=== PATIENT | female | born 1980 | race Caucasian/White ===

== ENCOUNTER 2019-11-25 06:43 | Inpatient (IN) | payer MEDICARE, OTHER ==
[2019-11-25] MEDS ORDERED: RINGERS SOLUTION,LACTATED 1,000 ML IV PRN (07:14)
[2019-11-25] MEDS ORDERED: RINGERS SOLUTION,LACTATED 1,000 ML IV ONE (07:14)
[2019-11-25] MEDS ORDERED: OXYTOCIN/0.9 % SODIUM CHLORIDE 30 UNIT/500 ML RTUINJ IV PRN ×2 (07:30→16:20)
[2019-11-25 07:51] LABS: APPEARANCE,URINE SLIGHTLY-CLOUDY; BILIRUBIN,URINE NEGATIVE (NEGATIVE); COLOR,URINE YELLOW; GLUCOSE, URINE NEGATIVE (NEGATIVE); KETONES,URINE NEGATIVE (NEGATIVE); LEUKOCYTE ESTERASE,URINE TRACE (NEGATIVE); NITRITE,URINE NEGATIVE (NEGATIVE); PROTEIN,URINE NEGATIVE (NEGATIVE); UROBILINOGEN,URINE NEGATIVE mg/dL (<2.0)
[2019-11-25 07:52] LABS: ABSOLUTE EOSINOPHILS # (AUTO) 0.1 10^3/uL (0.0-0.6); ABSOLUTE LYMPHOCYTES (AUTO) 1.5 10^3/uL (0.5-4.7); ABSOLUTE MONOCYTES (AUTO) 0.6 10^3/uL (0.1-1.4); ABSOLUTE NEUT (AUTO) 4.5 10^3/uL (1.7-8.2); BASOPHILS % (AUTO) 0.4 % (0-2); EOSINOPHILS % (AUTO) 0.8 % (0-6); HEMATOCRIT 36.1 % (36.0-47.0); HEMOGLOBIN 12.4 g/dL (12.0-15.5); LYMPHOCYTES % (AUTO) 22.9 % (13-45); MEAN CORPUSCULAR HEMOGLOBIN 30.8 pg (27.0-33.4); MEAN CORPUSCULAR HGB CONC 34.3 g/dL (32.0-36.0); MEAN CORPUSCULAR VOLUME 90 fl (80-97); MONOCYTES % (AUTO) 8.7 % (3-13); PLATELET COUNT 180 10^3/uL (150-450); RED BLOOD COUNT 4.02 10^6/uL (3.72-5.28); SEGMENTED NEUTROPHILS % (AUTO) 67.2 % (42-78); TOTAL CELLS COUNTED % (AUTO) 100 %; WHITE BLOOD COUNT 6.7 10^3/uL (4.0-10.5)
[2019-11-25 08:11] LABS: URINE AMPHETAMINES SCREEN NEGATIVE; URINE BARBITURATES SCREEN NEGATIVE; URINE BENZODIAZEPINES SCREEN NEGATIVE; URINE COCAINE SCREEN NEGATIVE; URINE MARIJUANA (THC) SCREEN NEGATIVE; URINE METHADONE SCREEN NEGATIVE; URINE PHENCYCLIDINE SCREEN NEGATIVE
[2019-11-25] MEDS ORDERED: LIDOCAINE 1% INJ-PF (10 MG/ML) 30 ML SDV ONE (08:11)
[2019-11-25] MEDS ORDERED: OXYTOCIN/0.9 % SODIUM CHLORIDE 30 UNIT/500 ML RTUINJ ONE (08:11)
[2019-11-25] MEDS ORDERED: OXYTOCIN 10 UNIT/ML VIAL ONE (08:11)
[2019-11-25] MEDS ORDERED: MISOPROSTOL 0.2 MG TABLET ONE (08:11)
--- NOTE | 2019-11-25 10:39 | L&D Progress Notes ---
PROGRESS NOTES Datetime Report Generated by CPN: 11/25/2019 10:38 PROGRESS NOTE Vital Signs : Reviewed Comment: Doing well, no c/o, irreg uyc's, Cat 1 strip, discussed POC, will ROM when vtx lower LAST VAGINAL EXAM-NURSING Nursing Exam Dilitation: 2.0 Nursing Exam Effacement: Thk Nursing Exam Station: High FETUS A FHR Category: Category I SIGNATURE SIGNATURE: [id number] Assignment: Cathleen Hammer MD Signature: with User ID: [email or web address] : with User ID: [email or web address]
--- NOTE | 2019-11-25 11:26 | L&D Progress Notes ---
PROGRESS NOTES Datetime Report Generated by CPN: 11/25/2019 11:26 PROGRESS NOTE Vital Signs : Reviewed Comment: VE= 2/80/vtx/-1, AROM. light mec, Cat 1 strip LAST VAGINAL EXAM-NURSING Nursing Exam Dilitation: 2.0 Nursing Exam Effacement: Thk Nursing Exam Station: High FETUS A FHR Category: Category I SIGNATURE SIGNATURE: [id number] Assignment: Cathleen Hammer MD Signature: with User ID: Rylan : with User ID: Rylan
--- NOTE | 2019-11-25 12:08 | Admission Physical ---
Datetime Report Generated by CPN: 11/25/2019 12:08 CURRENT ADMISSION Hx Assessment: The History has been Reviewed and is Current Chief Complaint: Scheduled Induction of Labor Indication for Induction: Postterm Admit Impression : Postterm, Intrauterine ; No Active Labor; Intact Membranes Admit Plan: Admit to Unit; Initiate Labor Induction Protocol ALLERGIES Medication Allergies: No Medication Allergies: No Known Allergies (11/26/2017) Latex: No Latex Allergies OBSTETRICAL HISTORY EDC: 11/22/2019 00:00 : 5 Para: 4 Term: 4 : 0 SAB: 0 IAB: 0 Ectopic: 0 Livin Cesareans: 0 VBACs: 0 Multiple Births: 0 Gestational Diabetes: No Rh Sensitization: No Incompetent Cervix: No TONI: No Infertility: No ART Treatment: No Uterine Anomaly: No IUGR: No Hx Previous C/S: No Macrosomia: No Hx Loss/Stillborn: No PIH: No Hx : No Placenta Previa/Abruption: No Depression/PP Depression: No PTL/PROM: No Post Hemorrhage: No Current Procedures: Ultrasound; NST SEE RECORDS Alcohol: No Marijuana : No Cocaine: No Other Illicit Drugs: No Cigarettes: Never Smoker. 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 Surgery: No Heart Disease: No Hosp/Surgery: No Autoimmune Disorder: No Anesthetic Complications: No Kidney Disease: No Abnormal Pap Smear: No Neuro/Epilepsy: No Psychiatric Disorders: No Other Medical Diseases: No Hepatitis/Liver Disease: No Significant Family History: No Varicosities/Phlebitis: No Trauma/Violence : No Thyroid Dysfunction: No INFECTIOUS HISTORY Gonorrhea: No Genital Herpes: No Chlamydia: No Tuberculosis: No Syphilis: No Hepatitis: No HIV/AIDS Exposure: No Rash or Viral Illness: No HPV: No PHYSICAL EXAM General: Normal HEENT: Normal Neurologic: Normal Thyroid: Normal Heart: Normal Lungs: Normal Breast: Normal Back: Normal Abdomen: Normal Genitourinary Exam: Normal Extremities: Normal DTRs: Normal Pelvic Type: Adequate Physical Exam Comments: Hx HSV zoster AMA GBS neg FETUS A EGA: 40.3 Monitoring: External US Variability: Moderate 6-25bpm Decelerations: None FHR Category: Category I Admit Comment: Admitted to LD for IOL for post dates, , usually has fast deliveries after 4 cm Plans epidural, hsb at , POC discussed PLANS FOR LABOR AND DELIVERY Labor and Delivery: None Pain Management: Epidural Feeding Preference: Breast INFORMED CONSENT Assignment: Cathleen Hammer MD Signature: with User ID: [email or web address] : with User ID: [email or web address]
[2019-11-25] MEDS ORDERED: EPHEDRINE SULFATE INJ 50 MG/1 ML AMPULE ONE (13:23)
[2019-11-25] MEDS ORDERED: FENTANYL/BUPIVACAINE/NS/PF 300 MCG/150 ML RTUINJ EPI ONE (13:24)
[2019-11-25] MEDS ORDERED: ROPIVACAINE HCL 0.2% INJ/PF (2 MG/ML) 20 ML SDV ONE (13:24)
[2019-11-25] MEDS ORDERED: PROMETHAZINE HCL 25 MG TABLET PO PRN (16:20)
[2019-11-25] MEDS ORDERED: MISOPROSTOL 0.2 MG TABLET PR PRN (16:20)
[2019-11-25] MEDS ORDERED: DIBUCAINE 1% OINTMENT 28 GM TP PRN (16:20)
[2019-11-25] MEDS ORDERED: ACETAMINOPHEN WITH CODEINE #3 TABLET PO PRN ×2 (16:20)
[2019-11-25] MEDS ORDERED: BENZOCAINE/MENTHOL AEROSOL SPRAY 56 ML TOP PRN (16:20)
[2019-11-25] MEDS ORDERED: PROMETHAZINE HCL INJ 25 MG/1 ML VIAL IV PRN (16:20)
[2019-11-25] MEDS ORDERED: MAGNESIUM HYDROXIDE SUSP 30 ML UDCUP PO PRN (16:20)
[2019-11-25] MEDS ORDERED: MEASLES,MUMPS&RUBELLA VACC/PF 0.5 ML VIAL SUBCUT PRN (16:20)
[2019-11-25] MEDS ORDERED: ACETAMINOPHEN 650 MG SUPP.RECT PR PRN (16:20)
[2019-11-25] MEDS ORDERED: PROMETHAZINE HCL 25 MG SUPP.RECT PR PRN (16:20)
[2019-11-25] MEDS ORDERED: PSEUDOEPHEDRINE HCL 30 MG TABLET PO PRN (16:20)
[2019-11-25] MEDS ORDERED: GLYCERIN/WITCH HAZEL LEAF 1 EACH MED..WIPE TP PRN (16:20)
[2019-11-25] MEDS ORDERED: DIPHENHYDRAMINE HCL 25 MG CAPSULE PO PRN (16:20)
[2019-11-25] MEDS ORDERED: DIPH/PERTUSS(ACELL)/TETANUS VAC/PF 0.5 ML SYR (>=10YO) IM PRN (16:20)
[2019-11-25] MEDS ORDERED: NA PHOS,M-B/NA PHOS,DI-BA (ADULT) 133 ML ENEMA PR PRN (16:20)
--- NOTE | 2019-11-25 17:59 | Warning Signs in Babies ---
VOD Warning Signs Datetime Report Generated by [facility]: 11/25/2019 17:58 VOD#608 -Warning Signs in Babies: Needs to be viewed. (11/25/2019 07:20:Tara Giraldo RN)
--- NOTE | 2019-11-25 17:59 | Birth Certificate Data ---
Cert Data Datetime Report Generated by CPN: 11/25/2019 17:58 CERTIFICATE DATA 47a. Care: Yes (11/25/2019 07:20:Tara Giraldo RN) 47b. Date of First Visit: 04/06/2019 00:00 (11/25/2019 07:20:Tara Giraldo RN) 47c. Date of Last Visit: 11/22/2019 00:00 (11/25/2019 07:20:Tara Giraldo RN) 47d. Number of Visits: 13 (11/25/2019 07:20:Tara Giraldo RN) 48a. Number of Prev Live Births: 4 (11/25/2019 07:20:Tara Giraldo RN) 48b. Now Livin (11/25/2019 07:20:Tara Giraldo RN) 48c. Live Births Now : 0 (11/25/2019 07:20:QS system process) 48d. Date of Last Live : 11/26/2017 00:00 (11/25/2019 07:20:Tara Giraldo RN) 48e. Losses: 0 (11/25/2019 07:20:Tara Giraldo RN) RISK FACTORS IN THIS 49a. Diabetes: No (11/25/2019 07:20:Tara Giraldo RN) 49b. Hypertension: No (11/25/2019 07:20:Tara Giraldo RN) 49c. Previous Births: 0 (11/25/2019 07:20:Tara Giraldo RN) 49d. Stillborns: No (11/25/2019 07:20:Tara Giraldo RN) 49d. IUGR: No (11/25/2019 07:20:Tara Giraldo RN) 49e. Infertility Treatment: No (11/25/2019 07:20:Tara Giraldo RN) 49f. Previous Cesareans: 0 (11/25/2019 07:20:Tara Giraldo RN) Mother's Height 50b. Height Inches: 68 (11/25/2019 17:03:QS system process) Mother's Weight 51a. Pre- Weight (lbs): 186 (11/25/2019 07:20:Tara Giraldo RN) 51b. Weight at Delivery (lbs): 218 (11/25/2019 17:03:QS system process) Infections Present/Treated 53a. Gonorrhea: No (11/25/2019 07:20:Tara Giraldo RN) Results this Hospital Visit : Negative (11/25/2019 07:20:Tara Giraldo RN) 53b. Syphilis: No (11/25/2019 07:20:Tara Giraldo RN) Results this Hospital Visit: NONREACTIVE (11/25/2019 07:34:QS system process) 53c. Chlamydia: No (11/25/2019 07:20:Tara Giraldo RN) Results this Hospital Visit: Negative (11/25/2019 07:20:Tara Giraldo RN) 53d. Hepatitis B: No (11/25/2019 07:20:Tara Giraldo RN) Results this Hospital Visit: Negative (11/25/2019 07:20:Tara Giraldo RN) 53e. Hepatitis C: Negative (11/25/2019 07:20:Tara Giraldo RN) 53h. Mother Tested for HBsAG: Yes (11/25/2019 07:20:Tara Giraldo RN) 53i. Date Tested: 04/06/2019 00:00 (11/25/2019 07:20:Tara Giraldo RN) 53j. Test Result: Negative (11/25/2019 07:20:Tara Giraldo RN) Obstetric Procedures 54a, b, c. Obstetric Procedures: Ultrasound; NST (11/25/2019 07:20:Tara Giraldo RN) Cigarette Smoking 55a. 3 Months Before Preg - Ci (11/25/2019 07:20:Tara Giraldo RN) 55a. Packs: 0 (11/25/2019 07:20:Tara Giraldo RN) 55b. 1st Trimester of Preg- Ci (11/25/2019 07:20:Tara Giraldo RN) 55b. Packs: 0 (11/25/2019 07:20:Tara Giraldo RN) 55c. 2nd Trimester of Preg- Ci (11/25/2019 07:20:Tara Giraldo RN) 55c. Packs: 0 (11/25/2019 07:20:Tara Giraldo RN) 55d. 3rd Trimester of Preg- Ci (11/25/2019 07:20:Tara Giraldo RN) 55d. Packs: 0 (11/25/2019 07:20:Tara Giraldo RN) Onset of Labor 56a. PROM >12 Hrs: 4.63 (11/25/2019 07:20:QS system process) 56b. Precipitous Labor <3 Hrs: 3 (11/25/2019 07:20:QS system process) 56c. Prolonged Labor > 20 Hrs: 3 (11/25/2019 07:20:QS system process) 57a. Induction of Labor: Induction (11/25/2019 07:20:Matilde Seals RN) 57a. Induction of Labor: Cytotec @ 1mg rectally by KAILEY Dietz (11/25/2019 16:03:Tara Giraldo RN) 57c. Non-Vertex Presentation A: Vertex (11/25/2019 07:20:Matilde Seals RN) 57d. Steroids - Lung Mat: None (11/25/2019 07:20:Matilde Seals RN) 57d. Steroids - Lung Mat: Not Applicable (11/25/2019 07:20:Matilde Seals RN) 57f. Mat [place] or Temp >100.4: 97.9 (11/25/2019 07:20:Matilde Seals RN) 57g. Moderate/Heavy Meconium: Light Meconium (11/25/2019 11:19:Matilde Seals RN) 57h. Intolerance of Labor: N/A (11/25/2019 07:20:Tara Giraldo RN) : N/A (11/25/2019 07:20:Tara Giraldo RN) 57i. Epidural/Spinal Anesthesia: Epidural (11/25/2019 07:20:Matilde Seals RN) Method of Delivery 58a. Forceps - Unsuccessful A: N/A (11/25/2019 07:20:Matilde Seals RN) 58b. Vacuum - Unsuccessful A: N/A (11/25/2019 07:20:Matilde Seals RN) 58c. Presentation at 58c. Presentation at - A : Vertex (11/25/2019 07:20:Matilde Seals RN) 58c. Presentation at - A : N/A (11/25/2019 07:20:Matilde Seals RN) 58c. Presentation at - A : Cephalic (11/25/2019 15:04:Tara Giraldo RN) Final Route and Method of Del 58d. Baby A Route/Delivery: Vaginal (11/25/2019 15:57:Tara Giraldo RN) 58e. Trial of Labor Attempted: No (11/25/2019 07:20:Matilde Seals RN) 58e. Trial of Labor Attempted A: N/A (11/25/2019 07:20:Matilde Marhefka, RN) 58e. Trial of Labor Attempted B: N/A (11/25/2019 07:20:Matildeida Seals RN) Maternal Morbidity 59b. 3rd or 4th Degree Lacs: Perineal (11/25/2019 07:20:Tara Francieelvar, RN) Birthweight Baby A: 3200 (11/25/2019 07:20:Betty Rao RN) 60a. Pounds : 7 (11/25/2019 07:20:QS system process) 60b. Ounces: 1 (11/25/2019 07:20:QS system process) 61. GA at Delivery Baby A: 40.3 (11/25/2019 07:20:Matilde Seals RN) : Full Term- 39- 40.6 Weeks (11/25/2019 07:20:QS system process) 62a. 5 Minute Baby A: 10 (11/25/2019 07:20:QS system process)
--- NOTE | 2019-11-25 18:00 | Delivery Summary ---
Del Sum A-C Datetime Report Generated by CPN: 11/25/2019 18:00 DELIVERY PERSONNEL DELIVERY PERSONNEL: [id number] Delivery Doctor:: Mary Herrera CNM Labor and Delivery Nurse:: aTra Giraldo RNhelper chicken farm Nurse:: Matilde Seals RN Nursery Nurse:: Matilde Seals RN Canal Equipment Mechanic/TENTERING MACHINE FEEDER: Ailyn Posey CST [employer] Equipment Mechanic/TENTERING MACHINE FEEDER: [facility], BUS TRANSPORTATION MANAGER MATERNAL INFORMATION Delivery Anesthesia: Epidural Medications After Delivery: Pitocin 30 Units in 500ml NS/D5W; Cytotec 1000mcg Per Rectum/Vagina Delivery QBL: 100 Maternal Complications: None Provider Comments: Progressed quickly, viable male from OA to MADHURI, NC x 1, reduced after delivery, baby placed on mothers abd, cord clamped and cut after 2 minutes by FOB, spont delivery of grossly nl intact placenta, 3 VC, laceration sutured FFFM, massage, Pitocin and Cytotec 1000mcg via rectum Baby and mom remain in recovery in stable condition, FFFM LABOR SUMMARY EDC: 11/22/2019 00:00 No. Babies in Womb: 1 Attempted: No Labor Anesthesia: Epidural LABOR INFORMATION Reason for Induction: Post Dates; Other Reason for Induction- Other: Advanced Maternal Age Onset of Labor: 11/25/2019 12:19 Complete Dilatation: 11/25/2019 15:46 Cervical Ripening Agents: Cytotec @ 1mg rectally by KAILEY Dietz Oxytocin: Induction Group B Beta Strep: Negative Antibiotics # of Doses: 0 Name of Antibiotic Given: N/A Steroids Given: None Reason Steroids Not Administered: Not Applicable MEMBRANES Membranes Rupture Method: Artificial Rupture of Membranes: 11/25/2019 11:19 Length of Rupture (hr): 4.63 Amniotic Fluid Color: Light Meconium Amniotic Fluid Amount: Small Amniotic Fluid Odor: Normal STAGES OF LABOR Stage 1 hr: 3 Stage 1 min: 27 Stage 2 hr: 0 Stage 2 min: 11 Stage 3 hr: 0 Stage 3 min: 5 Total Time in Labor hr: 3 Total Time in Labor min: 43 VAGINAL DELIVERY Episiotomy: None Laceration #1: Perineal Laceration Extension #1: First Degree Laceration Repair: Yes Laceration Repair Note: 2-0 Chromic Initial Vag Sponge Count: N/A Final Vag Sponge Count: N/A Initial Vag Sharps Count: N/A Final Vag Sharps Count: N/A Sponge Count Correct: N/A Sharps Count Correct: N/A CSECTION DELIVERY Primary Indication: N/A Secondary Indication: N/A CSection Incidence: N/A Labor: N/A Elective: N/A CSection Incision: N/A BABY A INFORMATION Delivery Date/Time: 11/25/2019 15:57 Method of Delivery: Vaginal Nurse Controlled Delivery: No Born in Route : No : N/A Forceps: N/A Vacuum Extraction: N/A Shoulder Dystocia : No PRESENTATION/POSITION BABY A Presentation: Cephalic Cephalic Presentation: Vertex Vertex Position: Left Occipital Anterior Breech Presentation: N/A PLACENTA INFORMATION BABY A Placenta Delivery Time : 11/25/2019 16:02 Placenta Method of Delivery: Spontaneous Placenta Status: Delivered SCORES BABY A Heart Rate 1 min: >100 bpm Resp Effort 1 min: Good Cry Reflex Irritability 1 min: Cough or Sneeze or Pulls Away Muscle Tone 1 min: Active Motion Color 1 min: Body [place], Extremities Blue Resuscitation Effort 1 min: Tactile Stimulation SCORE 1 MIN: 9 Heart Rate 5 min: >100 bpm Resp Effort 5 min: Good Cry Reflex Irritability 5 min: Cough or Sneeze or Pulls Away Muscle Tone 5 min: Active Motion Color 5 min: Completely [place] Resuscitation Effort 5 min: Tactile Stimulation SCORE 5 MIN: 10 INFORMATION BABY A Gestational Age at Delivery: 40.3 Gestational Status: Full Term- 39- 40.6 Weeks Outcome : Liveborn Condition : Stable Infant Sex: Male IDENTIFICATION BABY A Infant Verification Date/Time: 11/25/2019 16:54 ID Band Number: [id number] Mother's Name Verified: Yes RN Verifying : JNiebuhr,RN Additional Verifying Personnel: RMarhefka,RN WEIGHT/LENGTH BABY A Birthweight (gm): 3200 Infant Weight (lb): 7 Weight (oz): 1 Infant Length (in): 19.00 Infant Length (cm): 48.26 CORD INFORMATION BABY A No. Cord Vessels: 3 Nuchal Cord : Around Neck x1, Loose Cord Blood Taken: Yes-For Eval (Mom's Blood Type - or O+) Infant Suction: None ASSESSMENT BABY A Skin to Skin: Yes Skin to Skin Time (min): 75 BABY B INFORMATION : N/A
[2019-11-25] MEDS: DOCUSATE SODIUM 100 MG CAPSULE PO SCH ×2 (18:57→19:55)
[2019-11-25] MEDS: IBUPROFEN 800 MG TABLET PO SCH (21:12)
[2019-11-25] MEDS: FAMOTIDINE 20 MG TABLET PO SCH (21:12)
[2019-11-26] MEDS: IBUPROFEN 800 MG TABLET PO SCH (05:16)
[2019-11-26 07:41] VITALS: BP 118/67
[2019-11-26 08:06] LABS: HEMATOCRIT 33.6 % (36.0-47.0); HEMOGLOBIN 11.6 g/dL (12.0-15.5); MEAN CORPUSCULAR HGB CONC 34.6 g/dL (32.0-36.0); MEAN CORPUSCULAR VOLUME 90 fl (80-97); PLATELET COUNT 173 10^3/uL (150-450); RED BLOOD COUNT 3.76 10^6/uL (3.72-5.28); WHITE BLOOD COUNT 7.7 10^3/uL (4.0-10.5)
[2019-11-26] MEDS ORDERED: PRENATAL VITAMIN W DHA CAPSULE PO SCH (10:00)
[2019-11-26] MEDS ORDERED: SENNOSIDES/DOCUSATE 8.6-50 MG 1 EACH TABLET PO SCH (10:00)
[2019-11-26] MEDS: FAMOTIDINE 20 MG TABLET PO SCH (10:33)
[2019-11-26] MEDS: DOCUSATE SODIUM 100 MG CAPSULE PO SCH (10:33)
--- NOTE | 2019-11-26 11:51 | PDOC DISCHARGE SUMMARY ---
Impression - Admit/DC Date/PCP Admission Date/Primary Care Provider: 11/25/19 06:43 AYDIN MELENDEZ MD Discharge Date: 11/26/19 - Discharge Diagnosis (1) AMA (advanced maternal age) multigravida 35+ Is this a current diagnosis for this admission?: Yes (2) Normal vaginal delivery Is this a current diagnosis for this admission?: Yes - Additional Information Discharge Diet: Regular Discharge Activity: Balance Activity w/Rest, Pelvic Rest Referrals: AYDIN MELENDEZ MD [Primary Care Provider] - Home Medications: Prenat 115/Iron Fum/Folic/Dss [ 19 Tablet] 1 tab PO DAILY 11/26/17 Hospital Course 59. Maternal Morbidity (serious complications experinced by the mother associated with labor and delivery: None of the above Results Laboratory Results: WBC 7.7 10^3/uL (4.0-10.5) 11/26/19 07:24 RBC 3.76 10^6/uL (3.72-5.28) 11/26/19 07:24 Hgb 11.6 g/dL (12.0-15.5) L 11/26/19 07:24 Hct 33.6 % (36.0-47.0) L 11/26/19 07:24 MCV 90 fl (80-97) 11/26/19 07:24 MCH 31.0 pg (27.0-33.4) 11/26/19 07:24 MCHC 34.6 g/dL (32.0-36.0) 11/26/19 07:24 RDW 13.0 % (11.5-14.0) 11/26/19 07:24 Plt Count 173 10^3/uL (150-450) 11/26/19 07:24 Lymph % (Auto) 22.9 % (13-45) 11/25/19 07:34 [place] % (Auto) 8.7 % (3-13) 11/25/19 07:34 Eos % (Auto) 0.8 % (0-6) 11/25/19 07:34 Baso % (Auto) 0.4 % (0-2) 11/25/19 07:34 Absolute Neuts (auto) 4.5 10^3/uL (1.7-8.2) 11/25/19 07:34 Absolute Lymphs (auto) 1.5 10^3/uL (0.5-4.7) 11/25/19 07:34 Absolute Monos (auto) 0.6 10^3/uL (0.1-1.4) 11/25/19 07:34 Absolute Eos (auto) 0.1 10^3/uL (0.0-0.6) 11/25/19 07:34 Absolute Basos (auto) 0.0 10^3/uL (0.0-0.2) 11/25/19 07:34 Seg Neutrophils % 67.2 % (42-78) 11/25/19 07:34 Urine Color YELLOW 11/25/19 06:53 Urine Appearance SLIGHTLY-CLOUDY 11/25/19 06:53 Urine pH 5.0 (5.0-9.0) 11/25/19 06:53 Ur Specific [place] 1.020 11/25/19 06:53 Urine Protein NEGATIVE mg/dL (NEGATIVE) 11/25/19 06:53 Urine Glucose (UA) NEGATIVE mg/dL (NEGATIVE) 11/25/19 06:53 Urine Ketones NEGATIVE mg/dL (NEGATIVE) 11/25/19 06:53 Urine Blood SMALL (NEGATIVE) H 11/25/19 06:53 Urine Nitrite NEGATIVE (NEGATIVE) 11/25/19 06:53 Urine Bilirubin NEGATIVE (NEGATIVE) 11/25/19 06:53 Urine Urobilinogen NEGATIVE mg/dL (<2.0) 11/25/19 06:53 Ur Leukocyte Esterase TRACE (NEGATIVE) H 11/25/19 06:53 Urine Ascorbic Acid NEGATIVE (NEGATIVE) 11/25/19 06:53 Urine Opiates Screen NEGATIVE 11/25/19 06:53 Urine Methadone Screen NEGATIVE 11/25/19 06:53 Ur Barbiturates Screen NEGATIVE 11/25/19 06:53 Ur Phencyclidine Scrn NEGATIVE 11/25/19 06:53 Ur Amphetamines Screen NEGATIVE 11/25/19 06:53 U Benzodiazepines Scrn NEGATIVE 11/25/19 06:53 Urine Cocaine Screen NEGATIVE 11/25/19 06:53 U Marijuana (THC) Screen NEGATIVE 11/25/19 06:53 RPR NONREACTIVE (NONREACTIVE) 11/25/19 07:34 Blood Type O POSITIVE 11/25/19 07:34 Antibody Screen NEGATIVE 11/25/19 07:34 Plan Plan of Treatment: follow up in 4 weeks at [facility] for post check
== END 2019-11-26 19:05 | disposition home or self-care (01) | DRG 807 ==
LOC: LR 06:43 → 2S 17:03 → LR 17:26 → 2S 18:17
PROVIDERS: ADMIT Obstetrics & Gynecology; ATTEND Obstetrics & Gynecology
PROC: 10E0XZZ Delivery of Products of Conception, External Approach (ICD-10-PCS; principal; 2019-11-25)
PROC: 0HQ9XZZ Repair Perineum Skin, External Approach (ICD-10-PCS; 2019-11-25)
PROC: 10907ZC Drainage of Amniotic Fluid, Therapeutic from Products of Conception, Via Natural or Artificial Opening (ICD-10-PCS; 2019-11-25)
DX: O48.0 Post-term pregnancy (principal); O70.0 First degree perineal laceration during delivery; Z37.0 Single live birth; O69.81X0 Labor and delivery complicated by cord around neck, without compression, not applicable or unspecified; Z3A.40 40 weeks gestation of pregnancy; Z86.19 Personal history of other infectious and parasitic diseases
CPT/HCPCS: 1967; 36415; 80307; 81005; 85025; 85027; 86592; 86850; 86900; 86901; 94760; J2590; J2795; J3010; J3490